=== PATIENT | female | born 1990 | race Asian ===

== ENCOUNTER 2019-02-18 19:23 | Inpatient (IN) | payer OTHER ==
[2019-02-18 20:02] LABS: APPEARANCE,URINE CLOUDY; BILIRUBIN,URINE NEGATIVE (NEGATIVE); GLUCOSE, URINE NEGATIVE (NEGATIVE); KETONES,URINE TRACE mg/dL (NEGATIVE); LEUKOCYTE ESTERASE,URINE MODERATE (NEGATIVE); NITRITE,URINE NEGATIVE (NEGATIVE); PROTEIN,URINE 100 mg/dL (NEGATIVE); URINE SPECIFIC GRAVITY 1.028
[2019-02-18 20:08] LABS: COLOR,URINE YELLOW
[2019-02-18] MEDS ORDERED: RINGERS SOLUTION,LACTATED 1,000 ML IV PRN (20:22)
[2019-02-18 20:24] LABS: URINE AMPHETAMINES SCREEN NEGATIVE; URINE BARBITURATES SCREEN NEGATIVE; URINE BENZODIAZEPINES SCREEN NEGATIVE; URINE COCAINE SCREEN NEGATIVE; URINE MARIJUANA (THC) SCREEN NEGATIVE; URINE METHADONE SCREEN NEGATIVE; URINE PHENCYCLIDINE SCREEN NEGATIVE
[2019-02-18 20:53] LABS: ABSOLUTE BASOPHILS # (AUTO) 0.1 10^3/uL (0.0-0.2); ABSOLUTE LYMPHOCYTES (AUTO) 1.6 10^3/uL (0.5-4.7); ABSOLUTE MONOCYTES (AUTO) 0.8 10^3/uL (0.1-1.4); ABSOLUTE NEUT (AUTO) 10.4 10^3/uL (1.7-8.2); BASOPHILS % (AUTO) 0.6 % (0-2); EOSINOPHILS % (AUTO) 0.2 % (0-6); HEMOGLOBIN 9.9 g/dL (12.0-15.5); LYMPHOCYTES % (AUTO) 12.1 % (13-45); MEAN CORPUSCULAR HEMOGLOBIN 24.5 pg (27.0-33.4); MEAN CORPUSCULAR VOLUME 74 fl (80-97); MONOCYTES % (AUTO) 6.4 % (3-13); PLATELET COUNT 303 10^3/uL (150-450); RED BLOOD COUNT 4.04 10^6/uL (3.72-5.28); RED CELL DISTRIBUTION WIDTH 14.7 % (11.5-14.0); SEGMENTED NEUTROPHILS % (AUTO) 80.7 % (42-78); TOTAL CELLS COUNTED % (AUTO) 100 %
[2019-02-18] MEDS ORDERED: MISOPROSTOL 0.2 MG TABLET ONE (22:02)
[2019-02-18] MEDS ORDERED: LIDOCAINE 1% INJ-PF (10 MG/ML) 30 ML SDV ONE (22:02)
[2019-02-18] MEDS ORDERED: OXYTOCIN 10 UNIT/ML VIAL ONE (22:02)
[2019-02-18] MEDS ORDERED: FENTANYL CITRATE INJ/PF 100 MCG/2 ML AMPUL ONE (22:03)
[2019-02-18] MEDS ORDERED: PHENYLEPHRINE HCL INJ/PF 10 MG/1 ML SDV ONE (22:03)
[2019-02-18] MEDS ORDERED: OXYTOCIN/NORMAL SALINE 20 UNIT/1,000 ML RTUINJ ONE (22:03)
[2019-02-18] MEDS ORDERED: EPHEDRINE SULFATE INJ 50 MG/1 ML AMPULE ONE (22:04)
[2019-02-18] MEDS ORDERED: BUPIVACAINE HCL 0.25 % INJ/PF (2.5 MG/1 ML) 30 ML VIAL ONE (22:04)
--- NOTE | 2019-02-18 22:32 | Admission Physical ---
Datetime Report Generated by CPN: 02/18/2019 22:32 CURRENT ADMISSION Chief Complaint: Uterine Contractions Admit Impression : Term, Intrauterine ; Active Labor Admit Plan: Admit to Unit; Initiate Labor Protocol ALLERGIES Medication Allergies: No Medication Allergies: No Known Allergies (02/18/2019) Latex: Unknown OBSTETRICAL HISTORY EDC: 02/22/2019 00:00 : 1 Para: 0 Gestational Diabetes: No Rh Sensitization: No Incompetent Cervix: No SRIRAM: No Infertility: No ART Treatment: No Uterine Anomaly: No IUGR: No Hx Previous C/S: No Macrosomia: No Hx Loss/Stillborn: No PIH: No Hx : No Placenta Previa/Abruption: No Depression/PP Depression: No PTL/PROM: No Post Hemorrhage: No Current Procedures: Ultrasound Obstetrical History Comments: G1: current MEDICAL HISTORY Diabetes: No Blood Transfusion: No Pulmonary Disease (Asthma, TB): No Breast Disease: No Hypertension: No [employer] Surgery: No Heart Disease: No Hosp/Surgery: No Autoimmune Disorder: No Anesthetic Complications: No Kidney Disease: No Abnormal Pap Smear: No Neuro/Epilepsy: No Psychiatric Disorders: No Other Medical Diseases: No Hepatitis/Liver Disease: No Significant Family History: No Varicosities/Phlebitis: No Trauma/Violence : No Thyroid Dysfunction: Yes Medical History Comments: hypothyroid, cervical polyp. INFECTIOUS HISTORY Gonorrhea: No Genital Herpes: No Chlamydia: Yes Tuberculosis: No Syphilis: No Hepatitis: No HIV/AIDS Exposure: No Rash or Viral Illness: No HPV: No PHYSICAL EXAM General: Normal HEENT: Normal Neurologic: Normal Thyroid: Normal Heart: Normal Lungs: Normal Breast: Normal Back: Normal Abdomen: Normal Genitourinary Exam: Normal Extremities: Normal DTRs: Normal Pelvic Type: Adequate Vital Signs: Reviewed; Within Normal Limits VAGINAL EXAM Dilatation: 3 Effacement: 50 Station: -2 Contraction Comments: Regularly every 2-3 minutes MEMBRANES Pooling: Negative Membranes: Intact FETUS A EGA: 39.3 Monitoring: External US FHR- Baseline: 140 Variability: Moderate 6-25bpm Accelerations: 15X15 Decelerations: None FHR Category: Category I Presentation: Breech Admit Comment: G1 at 39.3 wks EGA in active labor with regular contractions and cervical change -Admit to LDR -IVFs and NPO -CEFM and toco -GBS negative -Membranes intact -Hypothyroidism on sythroid 75 mcg daily -Desires Epidural when needed for pain management -Anticipate PLANS FOR LABOR AND DELIVERY Labor and Delivery: None Pain Management: Natural; Epidural Feeding Preference: Breast Circumcision: Yes INFORMED CONSENT Informed Consent Obtained: Vaginal Delivery; Section Delivery; Vacuum/Forceps Assist; Risks, Benefits and Alternatives Discussed Signature: with User ID: Catie : with User ID: Catie
[2019-02-18] MEDS ORDERED: FENTANYL/BUPIVACAINE/NS/PF 300 MCG/150 ML RTUINJ EPI ONE (22:34)
[2019-02-19] MEDS ORDERED: DIPH/PERTUSS(ACELL)/TETANUS VAC/PF 0.5 ML SYR (>=10YO) IM PRN (12:35)
[2019-02-19] MEDS ORDERED: BENZOCAINE/MENTHOL AEROSOL SPRAY 56 ML TOP PRN (12:35)
[2019-02-19] MEDS ORDERED: OXYTOCIN/NORMAL SALINE 20 UNIT/1,000 ML RTUINJ IV PRN (12:35)
[2019-02-19] MEDS ORDERED: ZOLPIDEM TARTRATE 5 MG TABLET PO PRN (12:35)
[2019-02-19] MEDS ORDERED: ACETAMINOPHEN WITH CODEINE #3 TABLET PO PRN ×2 (12:35)
[2019-02-19] MEDS ORDERED: DIBUCAINE 1% OINTMENT 56 GM TP PRN (12:35)
--- NOTE | 2019-02-19 14:04 | Warning Signs in Babies ---
VOD Warning Signs Datetime Report Generated by [facility]: 02/19/2019 14:04 VOD#608 -Warning Signs in Babies: Viewed with Parent(s)/Family (02/19/2019 14:02:Kathrin Cassidy RN)
[2019-02-19] MEDS ORDERED: IRON SUCROSE COMPLEX INJ/PF 100 MG/5 ML SDV IV ONE (17:00)
[2019-02-19] MEDS: DOCUSATE SODIUM 100 MG CAPSULE PO SCH (18:22)
[2019-02-19] MEDS: FERROUS SULFATE 325 MG TABLET PO SCH (18:22)
[2019-02-19] MEDS: IBUPROFEN 800 MG TABLET PO SCH ×2 (18:31→21:54)
[2019-02-20] MEDS: IBUPROFEN 800 MG TABLET PO SCH ×3 (07:32→22:07)
[2019-02-20 08:09] LABS: HEMATOCRIT 24.1 % (36.0-47.0); HEMOGLOBIN 8.1 g/dL (12.0-15.5); MEAN CORPUSCULAR HEMOGLOBIN 25.3 pg (27.0-33.4); MEAN CORPUSCULAR HGB CONC 33.7 g/dL (32.0-36.0); MEAN CORPUSCULAR VOLUME 75 fl (80-97); PLATELET COUNT 233 10^3/uL (150-450); RED BLOOD COUNT 3.21 10^6/uL (3.72-5.28)
--- NOTE | 2019-02-20 09:08 | PDOC PROGRESS REPORT ---
Subjective-OB Progress Note for:: 02/20/19 Subjective: Doing well, no c/o, hsb at BS, , feels good, snt bleeding Physical Exam (OB) Vital Signs: Temp Pulse Resp BP Pulse Ox 97.8 F 77 14 98/70 L 99 02/20/19 07:21 02/20/19 07:21 02/20/19 07:21 02/20/19 07:21 02/20/19 07:21 Intake & Output 02/19/19 02/20/19 02/21/19 06:59 06:59 06:59 Intake Total 1000 Balance 1000 Weight 66.1 kg - PIH/Pre-Eclampsia Headache: Absent Epigastric Pain: No Visual Changes: No - Lochia Lochia Amount: Small 10-25 ml Lochia Color: Rubra/Red - Abdomen Description: Soft Hernia Present: No Fundal Description: Firm Fundal Height: u/u - u/2 Objective-Diagnostic Laboratory: 02/20/19 07:07 02/20/19 07:07 WBC 18.0 H RBC 3.21 L Hgb 8.1 L Hct 24.1 L MCV 75 L MCH 25.3 L MCHC 33.7 RDW 15.0 H Plt Count 233 Assessment and Plan(PN) - Assessment and Plan (1) Obstetric vaginal laceration with second degree perineal laceration Is this a current diagnosis for this admission?: Yes (2) Delivery normal Is this a current diagnosis for this admission?: Yes (3) Hypothyroid Qualifiers: Hypothyroidism type: unspecified Qualified Code(s): E03.9 - Hypothyroidism, unspecified Is this a current diagnosis for this admission?: Yes (4) Anemia Qualifiers: Anemia type: iron deficiency Is this a current diagnosis for this admission?: Yes - Time Spent with Patient Time with patient: Less than 15 minutes Medications reviewed and adjusted accordingly: Yes - Disposition Anticipated Discharge: Home Within: within 24 hours
[2019-02-20] MEDS: DOCUSATE SODIUM 100 MG CAPSULE PO SCH ×2 (09:32→17:15)
[2019-02-20] MEDS: FERROUS SULFATE 325 MG TABLET PO SCH ×2 (09:32→17:15)
[2019-02-20] MEDS: SENNOSIDES/DOCUSATE 8.6-50 MG 1 EACH TABLET PO SCH (09:32)
[2019-02-20] MEDS: PRENATAL VITAMIN W DHA CAPSULE PO SCH (09:32)
[2019-02-20] MEDS ORDERED: LEVOTHYROXINE SODIUM 0.075 MG TABLET PO ONE (10:00)
[2019-02-20] MEDS ORDERED: IRON SUCROSE COMPLEX INJ/PF 100 MG/5 ML SDV IV ONE (14:00)
[2019-02-21] MEDS: IBUPROFEN 800 MG TABLET PO SCH (05:24)
[2019-02-21 08:03] VITALS: BP 106/62
--- NOTE | 2019-02-21 09:51 | PDOC DISCHARGE SUMMARY ---
Impression - Admit/DC Date/PCP Admission Date/Primary Care Provider: 02/18/19 20:30 JUWAN REAL MD Discharge Date: 02/21/19 - Discharge Diagnosis (1) Anemia Is this a current diagnosis for this admission?: Yes (2) Delivery normal Is this a current diagnosis for this admission?: Yes (3) Hypothyroid Is this a current diagnosis for this admission?: Yes (4) Obstetric vaginal laceration with second degree perineal laceration Is this a current diagnosis for this admission?: Yes - Additional Information Resuscitation Status: Full Code Discharge Diet: Regular Discharge Activity: Balance Activity w/Rest, Pelvic Rest Referrals: JUWAN REAL MD [Primary Care Provider] - Prescriptions: Ibuprofen [Motrin 800 mg Tablet] 800 mg PO Q8HP PRN #60 tablet PRN Reason: Ferrous Sulfate [Feosol 325 mg Tablet] 325 mg PO BID #60 tablet Home Medications: Levothyroxine Sodium 75 mcg PO DAILY 02/18/19 Ferrous Sulfate [Feosol 325 mg Tablet] 325 mg PO BID #60 tablet 02/21/19 Ibuprofen [Motrin 800 mg Tablet] 800 mg PO Q8HP PRN #60 tablet 02/21/19 Results Laboratory Results: WBC 18.0 10^3/uL (4.0-10.5) H 02/20/19 07:07 RBC 3.21 10^6/uL (3.72-5.28) L 02/20/19 07:07 Hgb 8.1 g/dL (12.0-15.5) L 02/20/19 07:07 Hct 24.1 % (36.0-47.0) L 02/20/19 07:07 MCV 75 fl (80-97) L 02/20/19 07:07 MCH 25.3 pg (27.0-33.4) L 02/20/19 07:07 MCHC 33.7 g/dL (32.0-36.0) 02/20/19 07:07 RDW 15.0 % (11.5-14.0) H 02/20/19 07:07 Plt Count 233 10^3/uL (150-450) 02/20/19 07:07 Lymph % (Auto) 12.1 % (13-45) L 02/18/19 20:43 Hardy % (Auto) 6.4 % (3-13) 02/18/19 20:43 Eos % (Auto) 0.2 % (0-6) 02/18/19 20:43 Baso % (Auto) 0.6 % (0-2) 02/18/19 20:43 Absolute Neuts (auto) 10.4 10^3/uL (1.7-8.2) H 02/18/19 20:43 Absolute Lymphs (auto) 1.6 10^3/uL (0.5-4.7) 02/18/19 20:43 Absolute Monos (auto) 0.8 10^3/uL (0.1-1.4) 02/18/19 20:43 Absolute Eos (auto) 0.0 10^3/uL (0.0-0.6) 02/18/19 20:43 Absolute Basos (auto) 0.1 10^3/uL (0.0-0.2) 02/18/19 20:43 Seg Neutrophils % 80.7 % (42-78) H 02/18/19 20:43 Urine Color YELLOW 02/18/19 19:38 Urine Appearance CLOUDY 02/18/19 19:38 Urine pH 6.0 (5.0-9.0) 02/18/19 19:38 Ur Specific [place] 1.028 02/18/19 19:38 Urine Protein 100 mg/dL (NEGATIVE) H 02/18/19 19:38 Urine Glucose (UA) NEGATIVE mg/dL (NEGATIVE) 02/18/19 19:38 Urine Ketones TRACE mg/dL (NEGATIVE) H 02/18/19 19:38 Urine Blood MODERATE (NEGATIVE) H 02/18/19 19:38 Urine Nitrite NEGATIVE (NEGATIVE) 02/18/19 19:38 Urine Bilirubin NEGATIVE (NEGATIVE) 02/18/19 19:38 Urine Urobilinogen 4.0 mg/dL (<2.0) H 02/18/19 19:38 Ur Leukocyte Esterase MODERATE (NEGATIVE) H 02/18/19 19:38 Urine Ascorbic Acid NEGATIVE (NEGATIVE) 02/18/19 19:38 Urine Opiates Screen NEGATIVE 02/18/19 19:38 Urine Methadone Screen NEGATIVE 02/18/19 19:38 Ur Barbiturates Screen NEGATIVE 02/18/19 19:38 Ur Phencyclidine Scrn NEGATIVE 02/18/19 19:38 Ur Amphetamines Screen NEGATIVE 02/18/19 19:38 U Benzodiazepines Scrn NEGATIVE 02/18/19 19:38 Urine Cocaine Screen NEGATIVE 02/18/19 19:38 U Marijuana (THC) Screen NEGATIVE 02/18/19 19:38 RPR NONREACTIVE (NONREACTIVE) 02/18/19 20:43 Blood Type B POSITIVE 02/18/19 20:43 Antibody Screen NEGATIVE 02/18/19 20:43
[2019-02-21] MEDS: FERROUS SULFATE 325 MG TABLET PO SCH (10:15)
[2019-02-21] MEDS: PRENATAL VITAMIN W DHA CAPSULE PO SCH (10:15)
[2019-02-21] MEDS: DOCUSATE SODIUM 100 MG CAPSULE PO SCH (10:15)
[2019-02-21] MEDS: SENNOSIDES/DOCUSATE 8.6-50 MG 1 EACH TABLET PO SCH (10:15)
--- NOTE | 2019-02-22 14:02 | Delivery Summary ---
Del Sum A-C Datetime Report Generated by CPN: 02/22/2019 14:02 DELIVERY PERSONNEL DELIVERY PERSONNEL: [id number] Delivery Doctor:: Stephanie Brunner MD Labor and Delivery Nurse:: Priya Castro RNapparatus repair mechanic Nurse:: Kathrin Cassidy RN Nursery Nurse:: Leyla Collins RN Additional Personnel: : Sasha Mota RN MATERNAL INFORMATION Delivery Anesthesia: Epidural Medications After Delivery: Pitocin Bolus-Please Comment Delivery QBL: 250 Delivery QBL Comment: 250 ml Maternal Complications: None Provider Comments: of a viable male @ 1140 w/ an OA presentation; APGARS 6, 9; 2nd deg right vag lac LABOR SUMMARY EDC: 02/22/2019 00:00 No. Babies in Womb: 1 Attempted: No Labor Anesthesia: Epidural LABOR INFORMATION Reason for Induction: Not Applicable Onset of Labor: 02/19/2019 21:42 Complete Dilatation: 02/19/2019 01:47 Oxytocin: Augmentation Group B Beta Strep: negative Steroids Given: None Reason Steroids Not Administered: Not Applicable MEMBRANES Membranes Rupture Method: Spontaneous Rupture of Membranes: 02/18/2019 21:56 Length of Rupture (hr): 13.73 Amniotic Fluid Color: Light Meconium Amniotic Fluid Amount: Small Amniotic Fluid Odor: Normal STAGES OF LABOR Stage 1 hr: -19 Stage 1 min: -55 Stage 2 hr: 9 Stage 2 min: 53 Stage 3 hr: 0 Stage 3 min: 4 Total Time in Labor hr: -9 Total Time in Labor min: -58 VAGINAL DELIVERY Episiotomy: None Laceration #1: Vaginal Laceration Extension #1: Second Degree Laceration Repair: Yes Laceration Repair Note: 2nd degree right lateral vaginal lac repaired w/2-0 Vicryl Sponge Count Correct: Yes Sharps Count Correct: Yes BABY A INFORMATION Infant Delivery Date/Time: 02/19/2019 11:40 Method of Delivery: Vaginal Born in Route : No : N/A Forceps: N/A Vacuum Extraction: N/A Shoulder Dystocia : No PRESENTATION/POSITION BABY A Presentation: Cephalic Cephalic Presentation: Vertex Vertex Position: Occipital Anterior Breech Presentation: N/A PLACENTA INFORMATION BABY A Placenta Delivery Time : 02/19/2019 11:44 Placenta Method of Delivery: Spontaneous Placenta Status: Delivered SCORES BABY A Heart Rate 1 min: >100 bpm Resp Effort 1 min: Slow, Irregular Reflex Irritability 1 min: Cough or Sneeze or Pulls Away Muscle Tone 1 min: Some Flexion of Extremities Color 1 min: Blue/Pale Resuscitation Effort 1 min: Tactile Stimulation SCORE 1 MIN: 6 Heart Rate 5 min: >100 bpm Resp Effort 5 min: Good Cry Reflex Irritability 5 min: Cough or Sneeze or Pulls Away Muscle Tone 5 min: Active Motion Color 5 min: Body [place], Extremities Blue SCORE 5 MIN: 9 INFORMATION BABY A Gestational Age at Delivery: 39.4 Gestational Status: Full Term- 39- 40.6 Weeks Infant Outcome : Liveborn Condition : Stable Sex: Male IDENTIFICATION BABY A Verification Date/Time: 02/19/2019 12:16 ID Band Number: [id number] Mother's Name Verified: Yes Infant RN Verifying : M. Cassidy, RN Additional Verifying Personnel: Pattie Castro, RN WEIGHT/LENGTH BABY A Birthweight (gm): 3545 Weight (lb): 7 Infant Weight (oz): 13 Infant Length (in): 21.25 Infant Length (cm): 53.98 CORD INFORMATION BABY A No. Cord Vessels: 3 Nuchal Cord : N/A Cord Blood Taken: Yes-For Storage (Mom's Blood type +) Infant Suction: Mouth; Nose ASSESSMENT BABY A Complications: Multiple Late Decels; Multiple Variable Decels; Meconium Physical Findings at Delivery: Molding of the Head Respirations: Appears Normal Skin to Skin: Yes Skin to Skin: Yes [place] Regulator/ALS Called : No Care By: Latsaha Collins RN Transferred To: Remains with Mother BABY B INFORMATION : N/A SIGNATURES Signature: with User ID: [email or web address]
--- NOTE | 2019-02-22 16:18 | Delivery Summary ---
Del Sum A-C Datetime Report Generated by CPN: 02/22/2019 16:17 DELIVERY PERSONNEL DELIVERY PERSONNEL: [id number] Delivery Doctor:: Stephanie Brunner MD Labor and Delivery Nurse:: Priya Castro RNdriver's license reviewing officer Nurse:: Kathrin Cassidy RN Nursery Nurse:: Leyla Collins RN Additional Personnel: : Sasha Mota RN MATERNAL INFORMATION Delivery Anesthesia: Epidural Medications After Delivery: Pitocin Bolus-Please Comment Delivery QBL: 250 Delivery QBL Comment: 250 ml Maternal Complications: None Provider Comments: of a viable male @ 1140 w/ an OA presentation; APGARS 6, 9; 2nd deg right vag lac LABOR SUMMARY EDC: 02/22/2019 00:00 No. Babies in Womb: 1 Attempted: No Labor Anesthesia: Epidural LABOR INFORMATION Reason for Induction: Not Applicable Onset of Labor: 02/19/2019 21:42 Complete Dilatation: 02/19/2019 01:47 Oxytocin: Augmentation Group B Beta Strep: negative Steroids Given: None Reason Steroids Not Administered: Not Applicable MEMBRANES Membranes Rupture Method: Spontaneous Rupture of Membranes: 02/18/2019 21:56 Length of Rupture (hr): 13.73 Amniotic Fluid Color: Light Meconium Amniotic Fluid Amount: Small Amniotic Fluid Odor: Normal STAGES OF LABOR Stage 1 hr: -19 Stage 1 min: -55 Stage 2 hr: 9 Stage 2 min: 53 Stage 3 hr: 0 Stage 3 min: 4 Total Time in Labor hr: -9 Total Time in Labor min: -58 VAGINAL DELIVERY Episiotomy: None Laceration #1: Vaginal Laceration Extension #1: Second Degree Laceration Repair: Yes Laceration Repair Note: 2nd degree right lateral vaginal lac repaired w/2-0 Vicryl Sponge Count Correct: Yes Sharps Count Correct: Yes BABY A INFORMATION Infant Delivery Date/Time: 02/19/2019 11:40 Method of Delivery: Vaginal Born in Route : No : N/A Forceps: N/A Vacuum Extraction: N/A Shoulder Dystocia : No PRESENTATION/POSITION BABY A Presentation: Cephalic Cephalic Presentation: Vertex Vertex Position: Occipital Anterior Breech Presentation: N/A PLACENTA INFORMATION BABY A Placenta Delivery Time : 02/19/2019 11:44 Placenta Method of Delivery: Spontaneous Placenta Status: Delivered SCORES BABY A Heart Rate 1 min: >100 bpm Resp Effort 1 min: Slow, Irregular Reflex Irritability 1 min: Cough or Sneeze or Pulls Away Muscle Tone 1 min: Some Flexion of Extremities Color 1 min: Blue/Pale Resuscitation Effort 1 min: Tactile Stimulation SCORE 1 MIN: 6 Heart Rate 5 min: >100 bpm Resp Effort 5 min: Good Cry Reflex Irritability 5 min: Cough or Sneeze or Pulls Away Muscle Tone 5 min: Active Motion Color 5 min: Body [place], Extremities Blue SCORE 5 MIN: 9 INFORMATION BABY A Gestational Age at Delivery: 39.4 Gestational Status: Full Term- 39- 40.6 Weeks Infant Outcome : Liveborn Condition : Stable Sex: Male IDENTIFICATION BABY A Verification Date/Time: 02/19/2019 12:16 ID Band Number: [id number] Mother's Name Verified: Yes Infant RN Verifying : M. Cassidy, RN Additional Verifying Personnel: Pattie Castro, RN WEIGHT/LENGTH BABY A Birthweight (gm): 3545 Weight (lb): 7 Infant Weight (oz): 13 Infant Length (in): 21.25 Infant Length (cm): 53.98 CORD INFORMATION BABY A No. Cord Vessels: 3 Nuchal Cord : N/A Cord Blood Taken: Yes-For Storage (Mom's Blood type +) Infant Suction: Mouth; Nose ASSESSMENT BABY A Complications: Multiple Late Decels; Multiple Variable Decels; Meconium Physical Findings at Delivery: Molding of the Head Respirations: Appears Normal Skin to Skin: Yes Skin to Skin: Yes E Commerce Web Developer/ALS Called : No Care By: Latasha Collins RN Transferred To: Remains with Mother BABY B INFORMATION : N/A SIGNATURES Signature: with User ID: [email or web address]
== END 2019-02-21 12:47 | disposition home or self-care (01) | DRG 807 ==
LOC: LC 19:23 → LR 20:30 → 2S 02-19 14:37
PROVIDERS: ADMIT Obstetrics & Gynecology; ATTEND Obstetrics & Gynecology
PROC: 10E0XZZ Delivery of Products of Conception, External Approach (ICD-10-PCS; principal; 2019-02-19)
PROC: 0KQM0ZZ Repair Perineum Muscle, Open Approach (ICD-10-PCS; 2019-02-19)
DX: O99.284 Endocrine, nutritional and metabolic diseases complicating childbirth (principal); Z37.0 Single live birth; E03.9 Hypothyroidism, unspecified; O32.1XX0 Maternal care for breech presentation, not applicable or unspecified; O99.02 Anemia complicating childbirth; D50.9 Iron deficiency anemia, unspecified; O77.0 Labor and delivery complicated by meconium in amniotic fluid; O76 Abnormality in fetal heart rate and rhythm complicating labor and delivery; O70.1 Second degree perineal laceration during delivery; Z3A.39 39 weeks gestation of pregnancy
CPT/HCPCS: 36415; 80307; 81005; 85025; 85027; 86592; 86850; 86900; 86901; J1756; J2370; J2590; J3010; J3490